=== PATIENT | male | born 1990 | race Two or more races ===

== ENCOUNTER 2023-09-06 19:06 | Emergency (ER) | payer SELFPAY ==
[~2023-09-06] VITALS: Ht 167.6 cm; Wt 100.0 kg
[2023-09-06 19:35] VITALS: BP 131/86; PULSE 85; RESP 20; TEMP 98.5
[2023-09-06] MEDS ORDERED: IBUP-1455 PO (22:16)
[2023-09-06] MEDS: KETOROLAC TROMETH 30 MG/ML 1ML VIAL IM ONE (22:20)
[2023-09-06 22:45] VITALS: O2SAT 95
== END 2023-09-06 22:58 | disposition home or self-care (01) ==
LOC: ER 19:06
DX: M25.561 Pain in right knee (principal)
CPT/HCPCS: 29505; 73562; 96372; 99283; J1885

== ENCOUNTER 2024-06-15 16:33 | Emergency (ER) | payer MEDICAID, OTHER ==
[~2024-06-15] VITALS: Ht 170.2 cm; Wt 101.1 kg
[~2024-06-15 16:33] MED LIST: IBUP-1455 PO
--- NOTE | 2024-06-15 18:21 | ED.PDOC ---
Musculoskeletal HPI Comments 33Y M presents to ED with chief complaint rt great toe pain x last night. Pt denies trauma/injury. Pt states he felt that the toe wanted to crack and then the pain began. Pt says pain worsens with pressure and movement. Pt denies h/o gout. Pt denies consuming alcohol and red meat recently. No other symptoms/history reported. Chief Complaint: Lower Extremity Time Seen by MD: 18:10 Primary Care Provider: NONE Reviewed Notes: Nurses Notes, Medications, Allergies Allergies: Coded Allergies: NO KNOWN ALLERGIES (Unverified , 11/16/11) Home Meds Active Scripts Ibuprofen Micronized (Ibuprofen) 800 Mg Tab, 800 MG PO [id number] PRN, #20 TAB Prov:JADEN RUIZ PAC 09/06/23 Information Source: Patient Mode of Arrival: Ambulatory Location: Right Extremity Location: Great Toe Timing: Days Prehospital treatment: None Severity: Mild Able to Move Extremity: Yes Bear Weight: Limited Pain: Mild Mechanism: Spontaneous Circumstances: Spontaneous Onset of Symptoms: Spontaneous Symptoms: Swelling, Pain, Erythema DVT Risk Factors: NONE Associated signs and symptoms: Other Past Medical History PAST MEDICAL HISTORY: Denies Surgical History: Denies all surgeries Family History Family History: Unknown Social History Smoker: Non-Smoker Alcohol: Denies ETOH Use Drugs: Denies Drug Use Lives In: Home Constitutional: denies: chills, diaphoresis, fatigue, fever, malaise, sweats, weakness, others EENTM: denies: blurred vision, double vision, ear bleeding, ear discharge, ear drainage, ear pain, ear ringing, eye pain, eye redness, hearing loss, mouth pain, mouth swelling, nasal discharge, nose bleeding, nose congestion, nose pain, photophobia, tearing, throat pain, throat swelling, voice changes, others Respiratory: denies: cough, hemoptysis, orthopnea, SOB at rest, shortness of b reath, SOB with excertion, stridor, wheezing, others Cardiovascular: denies: chest pain, dizzy spells, diaphoresis, Dyspnea on exertion, edema, irregular heart beat, left arm pain, lightheadedness, palpitations, PND, syncope, others Gastrointestinal: denies: abdomen distended, abdominal pain, blood streaked bowels, constipated, diarrhea, dysphagia, difficulty swallowing, hematemesis, melena, nausea, poor appetite, poor fluid intake, rectal bleeding, rectal pain, vomiting, others Genitourinary: denies: burning, dysuria, flank pain, frequency, hematuria, incontinence, penile discharge, penile sore, pain, testicle pain, testicle swelling, urgency, others Neurological: denies: dizziness, fainting, headache, left sided numbness, left sided weakness, numbness, paresthesia, pre-existing deficit, right sided numbness, right sided weakness, seizure, speech problems, tingling, tremors, weakness, others Musculoskeletal: reports: others (rt foot pain); denies: back pain, gout, joint pain, joint swelling, muscle pain, muscle stiffness, neck pain Integumetry: reports: bruises (rt great toe); denies: change in color, change in hair/nails, dryness, laceration, lesions, lumps, rash, wounds, others Allergic/Immunocompromised: denies: Difficulty Healing, Frequent Infections, Hives, Itching, others Hematologic/Lymphatic: denies: anemia, blood clots, easy bleeding, easy bruising, swollen glands, others Endocrine: denies: excessive hunger, excessive sweating, excessive thirst, excessive urination, flushing, intolerance to cold, intolerance to heat, unexplained weight gain, unexplained weight loss, others Psychiatric: denies: anxiety, bipolar disorder, depression, hopeless, panic disorder, schizophrenia, sleepless, suicidal, others All Other Systems: Reviewed and Negative Physical Exam General Appearance: No Apparent Distress, Normal HEENT: Normal ENT Inspection, Pharynx Normal, TMs Normal Neck: Full Range of Motion, Non-Tender, Normal, Normal Inspection Respiratory: Chest Non-Tender, Lungs Clear, No Accessory Muscle Use, No Respiratory Distress, Normal Breath Sounds Cardiovascular: No Edema, No JVD, No Murmur, No Gallop, Normal Peripheral Pulses, Regular Rate/Rhythm Breast Exam: Deferred Gastrointestinal: No Organomegaly, Non Tender, No Pulsatile Mass, Normal Bowel Sounds, Soft Genitalia: Deferred Pelvic: Deferred Rectal: Deferred Extremities: No calf tenderness, Normal capillary refill, Normal inspection, Normal range of motion, Non-tender, No pedal edema Musculoskeletal : Location: Right Extremity Location: Great Toe Apperance: Swelling, Tenderness: Mild Neurologic: Alert, agency sales director II-XII nml as Tested, No Motor Deficits, Normal Affect, Normal Mood, No Sensory Deficits Cerebellar Function: Normal Reflexes: Normal Skin: Dry, Normal Color, Warm Lymphatic: No Adenopathy Was a procedure done? Was a procedure done?: No Differential Diagnosis EXT Differential Diagnosis: Fracture, Sprain, Dislocation, Strain, Other (gout) X-Ray, Labs, Meds, VS Vital Signs Date Time Temp Pulse Resp B/P (MAP) Pulse Ox O2 Delivery O2 Flow Rate FiO2 06/15/24 17:00 97.7 75 20 132/76 (94) 96 97.7 X-Ray, Labs, Meds, VS Comment Imaging: X-rays and CT scans were reviewed and interpreted by this provider, imaging shows no fractures and no pathological disease. Pending radiology review. Laboratory: Labs reviewed and interpreted by this provider. No significant abnormalities noted. Patient has prior medical visits reviewed. Med reconciliation performed Vital signs reviewed Time of 1ST Reevaluation: 18:40 Reevaluation 1ST: Unchanged Patient Education/Counseling: Diagnosis, Treatment, Need For Follow Up (Follow up in the emergency department in the next 24-48 hours if symptoms worsen. Follow up with PCP in the next 3-5 days.) Family Education/Counseling: No Family Present Departure 1 Departure Time of Disposition: 18:52 Impression: Primary Impression: Gout attack Qualified Codes: M10.071 - Idiopathic gout, right ankle and foot Disposition: 01 HOME / SELF CARE / HOMELESS Condition: Fair e-Prescriptions Ibuprofen Micronized (Ibuprofen) 800 Mg Tab 800 MG PO TID PRN, #40 TAB Prov: FREDO SHAH 06/15/24 Colchicine (Colchicine) 0.6 Mg Cap 0.6 MG PO BID PRN, #12 CAP Prov: FREDO SHAH 06/15/24 Discharged With: Self Critical Care Note Critical Care Time?: No Stability Stability form required: No Heart Score Heart Score: Heart Score Response (Comments) Value History N/A 0 EKG N/A 0 Age N/A 0 Risk Factors N/A 0 Troponin N/A 0 Total 0 I personally scribed for FREDO SHAH ([email or web address]) on 06/15/24 at 18:21. Electronically submitted by Tresa Preciado ([email or web address]). FREDO SHAH Jun 15, 2024 18:21
--- NOTE | 2024-06-15 18:47 | DVH ---
CLINICAL INDICATION: swelling TECHNIQUE: 3 radiographic views of the right foot were obtained. Comparison: None FINDINGS/IMPRESSION: There is no evidence of acute fracture or dislocation. Mild soft tissue swelling. No gas noted in the soft tissues. The visualized joint space is well maintained. The alignment is anatomical. There is no radiopaque foreign body.
[2024-06-15] MEDS ORDERED: COLC1CAP PO (18:57)
[2024-06-15] MEDS ORDERED: IBUP-1455 PO (18:57)
[2024-06-15 19:09] VITALS: BP 132/91; PULSE 71; RESP 18; TEMP 98.2; O2SAT 94
== END 2024-06-15 19:10 | disposition home or self-care (01) ==
LOC: ER 16:33
DX: M10.071 Idiopathic gout, right ankle and foot (principal)
CPT/HCPCS: 73620